=== PATIENT | male | born 1965 | race Asian ===

== ENCOUNTER 2021-07-04 12:11 | Emergency (ER) | payer BC ==
[2021-07-04] MEDS ORDERED: ACETAMINOPHEN 325 MG TABLET (FP) PO ONE (12:26)
[2021-07-04 13:01] LABS: BASO % 0.4 % (0-2.0); EOS % 0.1 % (0-4.5); HEMATOCRIT 44.6 % (35.4-49); HEMOGLOBIN 15.1 GM/dL (11.7-16.9); MCH 30.3 pg (25.7-33.7); MCHC 33.7 g/dl (32.0-35.9); MEAN CELL VOLUME 89.8 fl (80-96); MEAN PLT VOLUME 7.5 fl (7.5-11.1); MONO % 3.9 % (3.8-10.2); NEUT % 80.6 % (42.8-82.8); PLATELET COUNT 245 10^3/uL (134-434); RBC 4.97 M/mm3 (4.00-5.60); RDW 14.8 % (11.9-15.9); WHITE BLOOD COUNT 9.7 K/mm3 (4.0-10.0)
[2021-07-04] MEDS ORDERED: ACETAMINOPHEN 325 MG TABLET (FP) ONE (13:07)
[2021-07-04 13:13] VITALS: TEMP 98.1; BMI 29.8
[2021-07-04] MEDS ORDERED: LABETALOL HCL 5 MG/1 ML (100MG/20 ML VIAL) IVPUSH ONE ×3 (13:15→14:44)
[2021-07-04 13:24] LABS: CHLORIDE 104 mmol/L (98-107); SODIUM 139 mmol/L (136-145)
[2021-07-04 13:26] LABS: CALCIUM 9.3 mg/dL (8.5-10.1); GLUCOSE,RANDOM 114 mg/dL (74-106)
[2021-07-04 13:27] LABS: ALBUMIN 3.9 g/dl (3.4-5.0); ANION GAP 6 MMOL/L (8-16); CO2 28 mmol/L (21-32)
[2021-07-04 13:29] LABS: CREATININE 0.9 mg/dL (0.55-1.3); SGOT/AST 177 U/L (15-37); SGPT/ALT 42 U/L (13-61)
[2021-07-04 13:31] LABS: BILIRUBIN,TOTAL 0.6 mg/dL (0.2-1); TOT PROT 7.1 g/dl (6.4-8.2)
[2021-07-04 13:32] LABS: ALK PHOS 72 U/L (45-117)
[2021-07-04] MEDS ORDERED: HEPARIN NA (PORCINE) 5,000 UNITS/ML 1ML VIAL IVPUSH PRN ×2 (14:26)
[2021-07-04] MEDS ORDERED: HEPARIN - 25,000 UNIT in SODIUM CHLORIDE 495 ML IV SCH (14:30)
[2021-07-04] MEDS ORDERED: HEPARIN NA (PORCINE) 5,000 UNITS/ML 1ML VIAL ONE (14:33)
[2021-07-04] MEDS ORDERED: HEPARIN INFUSION - 25,000 UNITS/500 ML INFUS.BAG IVPB ONE (14:33)
[2021-07-04] MEDS ORDERED: NITROGLYCERIN 2% OINTMENT - 1GM PACKET TD ONE (14:44)
[2021-07-04] MEDS ORDERED: CLOPIDOGREL BISULFATE 300 MG TABLET PO ONE (14:44)
[2021-07-04] MEDS ORDERED: CLOPIDOGREL BISULFATE 300 MG TABLET ONE (14:56)
[2021-07-04 17:48] LABS: INR 1.23 (0.83-1.09)
[2021-07-04 18:25] LABS: ACTIVATED PTT > 400.0 SECONDS (25.2-36.5)
[2021-07-04 19:37] VITALS: BP 160/100; PULSE 66
[2021-07-04] MEDS ORDERED: ATORVASTATIN CA 80 MG TABLET (FP) PO SCH (22:00)
== END 2021-07-04 21:13 | disposition short-term general hospital (02) ==
LOC: JER 12:11
PROC: 3E033GC Introduction of Other Therapeutic Substance into Peripheral Vein, Percutaneous Approach (ICD-10-PCS; principal; 2021-07-04)
PROC: 3E033GC Introduction of Other Therapeutic Substance into Peripheral Vein, Percutaneous Approach (ICD-10-PCS; 2021-07-04)
PROC: 3E033GC Introduction of Other Therapeutic Substance into Peripheral Vein, Percutaneous Approach (ICD-10-PCS; 2021-07-04)
PROC: 3E033GC Introduction of Other Therapeutic Substance into Peripheral Vein, Percutaneous Approach (ICD-10-PCS; 2021-07-04)
DX: R07.9 Chest pain, unspecified (principal)
CPT/HCPCS: 36415; 71045-TC-FY; 80053; 84484; 85025; 85610; 85730; 93005; 93010; 99285-25; C9803-CS; J1644; U0003; U0005